=== PATIENT | female | born 1970 | race Caucasian/White ===

== ENCOUNTER → 2017-07-21 | Outpatient (CLI) | payer OTHER | LOC: FIMAGING 13:08 | PROVIDERS: ATTEND Obstetrics & Gynecology | DX: Z12.31 Encounter for screening mammogram for malignant neoplasm of breast (principal) | CPT/HCPCS: G0202 ==

== ENCOUNTER → 2018-09-17 | Outpatient (CLI) | payer OTHER | LOC: FIMAGING 12:46 | PROVIDERS: ATTEND Obstetrics & Gynecology | DX: Z12.31 Encounter for screening mammogram for malignant neoplasm of breast (principal); R92.0 Mammographic microcalcification found on diagnostic imaging of breast ==

== ENCOUNTER → 2018-10-09 | Outpatient (CLI) | payer OTHER | LOC: FIMAGING 09:56 | PROVIDERS: ATTEND Obstetrics & Gynecology | DX: R92.0 Mammographic microcalcification found on diagnostic imaging of breast (principal) ==

== ENCOUNTER → 2018-10-30 | Day surgery (SDC) | payer OTHER ==
[~2018-10-30] MED LIST: BUPIVACAINE 0.5% 30 ML SDV ONE; LIDOCAINE 1% 300 MG/30 ML SDV ONE
== END | disposition home or self-care (01) ==
LOC: FIMAGING 07:21
PROVIDERS: ATTEND Obstetrics & Gynecology
DX: D24.1 Benign neoplasm of right breast (principal); N60.81 Other benign mammary dysplasias of right breast; R92.0 Mammographic microcalcification found on diagnostic imaging of breast